=== PATIENT | male | born 1945 | race Caucasian/White ===

== ENCOUNTER 2017-11-26 10:39 | Inpatient (IN) | payer MEDICARE, OTHER ==
[2017-11-26] MEDS ORDERED: ISOVUE-370 76%-LOCM 1 ML ONE (10:50)
[2017-11-26 11:43] LABS: #Eosinphils 0.6 thou/uL (0.0-0.7); #Lymphocytes 1.1 thou/uL (1.20-3.40); #Monocytes 1.3 thou/uL (0.11-0.59); #Neutrophils 8.4 thou/uL (1.40-6.50); %Basophils 0.2 % (0.0-1.0); %Eosinophils 5.4 % (0.0-10.0); %Lymphocytes 9.6 % (21.0-51.0); %Monocytes 11.5 % (0.0-10.0); %Neutrophils 73.3 % (42.0-75.0); Hemoglobin 13.9 g/dL (14.0-18.0); Mean Corpuscular HGB CONC 33.4 g/dL (32.0-36.0); Mean Corpuscular Hemoglobin 34.3 pg (27.0-31.0); Mean Platelet Volume 7.2 fL (7.4-10.4); Platelet Count 332 thou/uL (130-400); Red Blood Cell (RBC) Count 4.06 mill/uL (4.70-6.10); White Blood Cell (WBC) Count 11.4 thou/uL (4.8-10.8)
[2017-11-26 13:18] LABS: Albumin 3.3 g/dL (3.4-4.8)
[2017-11-26 13:20] LABS: Calcium 9.2 mg/dL (7.8-10.44); Chloride 93 mmol/L (98-107); Potassium 4.2 mmol/L (3.5-5.1); Sodium 131 mmol/L (136-145)
[2017-11-26 13:21] LABS: Globulin 3.5 g/dL (2.4-3.5); Glucose 115 mg/dL (80-115); Protein, Total 6.8 g/dL (5.8-8.1)
[2017-11-26 13:22] LABS: Anion Gap 12 mmol/L (10-20); Carbon Dioxide 30 mmol/L (23-31)
[2017-11-26 13:23] LABS: Bilirubin, Total 0.9 mg/dL (0.2-1.2)
[2017-11-26 13:24] LABS: Alkaline Phosphatase 284 U/L (40-150); Calc. Creatinine Clearance 0 mL/min (70-130); Estimated GFR-MDRD 78
[2017-11-26 13:25] LABS: BUN (Urea Nitrogen) 12 mg/dL (8.4-25.7)
[2017-11-26 13:26] LABS: AST (SGOT) 44 U/L (5-34)
[2017-11-26 13:27] LABS: ALT (SGPT) 59 U/L (8-55)
--- NOTE | 2017-11-26 15:33 | ULT ---
LEFT LOWER EXTREMITY VENOUS DOPPLER ULTRASOUND: 11/26/2017 HISTORY: Pain. Swelling. Edema. Assess for DVT. COMPARISON: None. TECHNIQUE: Multiplanar cabrera-scale sonographic imaging of the venous structures of the left lower extremity obtai marina with color-flow and spectral analysis. FINDINGS: The left common femoral vein is expanded with heterogeneously hypoechoic clot. Similar findings are seen within the left profunda femoral vein, femoral vein, popliteal vein, and posterior tibial vein. The color Doppler imaging demonstrates occlusive DVT throughout all veins of the left lower extremit y, as well as occlusive clot in the calf. IMPRESSION: Extensive occlusive deep venous thrombosis throughout the left lower extremity, as detailed above. Kyler rothman called to Dr. Villegas at 1:50 p.m. on 11/26/2017. CODE CR POS: BHAVIK
[2017-11-26] MEDS ORDERED: Enoxaparin Sodium 80 MG/0.8 ML SYRINGE ONE (16:29)
[2017-11-26] MEDS ORDERED: Enoxaparin Sodium 60 MG/0.6 ML SYRINGE ONE (16:29)
[2017-11-26] MEDS ORDERED: Enoxaparin Sodium 40 MG/0.4 ML SYRINGE ONE (16:30)
[2017-11-26] MEDS ORDERED: Enoxaparin Sodium 100 MG/ML SYRINGE ONE (16:32)
[2017-11-26] MEDS ORDERED: Ondansetron HCl/PF 4 MG/2 ML Vial IVP PRN ×2 (17:36→20:42)
[2017-11-26] MEDS ORDERED: Acetaminophen 325 MG TAB PO PRN (17:36)
[2017-11-26] MEDS ORDERED: Ondansetron ODT 4 MG TAB SL PRN (17:36)
[2017-11-26 17:50] VITALS: BMI 29.2
[2017-11-26] MEDS ORDERED: Ondansetron ODT 4 MG TAB PO PRN (20:42)
[2017-11-26] MEDS ORDERED: Acetaminophen 500 MG TAB PO PRN (20:42)
[2017-11-26] MEDS ORDERED: hydrALAZINE 20 MG/ML VIAL SLOW IVP PRN (20:42)
[2017-11-26] MEDS ORDERED: cloNIDine 0.1 MG TAB PO PRN (20:42)
[2017-11-26] MEDS ORDERED: Temazepam 15 MG CAP PO PRN (21:05)
[2017-11-26] MEDS: Famotidine 20 MG TAB PO SCH (21:10)
[2017-11-26] MEDS: Enoxaparin Sodium 120 MG/0.8 ML SYRINGE SC SCH (21:10)
[2017-11-26] MEDS: traMADol HCl 50 MG TAB PO PRN (21:15)
--- NOTE | 2017-11-26 22:09 | PDOC.EVN ---
Event Note - Event Note Event Note: Called by Radiologist, Patient's CTA was positive for fairly large PE. Patient is on Lovenox full dose, and Vital signs were reviewed, and are normal.
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
--- NOTE | 2017-11-26 22:24 | CT ---
CTA CHEST WITH 3D VOLUME RENDERIN11/26/17 INDICATION: History of DVT. FINDINGS: There is a large filling defect involving segmental branches of the right pulmonary arterial system, most notable at the level of right lower lobe pulmonary arterial branches. A very small filling defec t involves left upper lobe segmental pulmonary arterial branch as well as a subsegmental left lower l obe pulmonary arterial branch. There is patchy subpleural opacification of the right lower lobe for w hich the possibility of pulmonary infarction is not excluded in light of the burden of acute pulmonar y embolus. No pneumothorax or pleural effusion. IMPRESSION: Extensive acute pulmonary thromboembolism with subpleural patchy opacification of the right lower lob e for which developing pulmonary infarction is not excluded. Telephone call to ordering physician, Darwin Ibrahim, placed at 2159 hours, 11/26/17. Code CR POS: BHAVIK
[2017-11-27] MEDS: traMADol HCl 50 MG TAB PO PRN ×4 (05:05→23:29)
[2017-11-27 06:37] LABS: ALT (SGPT) 46 U/L (8-55); AST (SGOT) 35 U/L (5-34); Albumin 3.1 g/dL (3.4-4.8); Alkaline Phosphatase 261 U/L (40-150); Anion Gap 12 mmol/L (10-20); BUN (Urea Nitrogen) 12 mg/dL (8.4-25.7); Calc. Creatinine Clearance 133 mL/min (70-130); Carbon Dioxide 30 mmol/L (23-31); Chloride 93 mmol/L (98-107); Estimated GFR-MDRD Greater than 90; Globulin 3.4 g/dL (2.4-3.5); Glucose 99 mg/dL (80-115); Potassium 3.8 mmol/L (3.5-5.1); Protein, Total 6.5 g/dL (5.8-8.1); Sodium 131 mmol/L (136-145)
[2017-11-27 06:44] LABS: Hemoglobin 13.2 g/dL (14.0-18.0); Mean Corpuscular HGB CONC 33.3 g/dL (32.0-36.0); Mean Platelet Volume 6.8 fL (7.4-10.4); Platelet Count 403 thou/uL (130-400); RBC Distribution Width 12.2 % (11.5-14.5); Red Blood Cell (RBC) Count 3.87 mill/uL (4.70-6.10); White Blood Cell (WBC) Count 10.3 thou/uL (4.8-10.8)
[2017-11-27 06:51] LABS: Band 2 % (5-11); Hypochromia SLIGHT = 6-15 cells (100X) (0-5/hpf); Lymphocytes 8 % (21-51); MDiff Complete? YES; Monocytes 6 % (0-10); Neutrophil 84 % (42-75); PLT Morphology Comment Appears Increased
[2017-11-27] MEDS: Enoxaparin Sodium 120 MG/0.8 ML SYRINGE SC SCH ×2 (08:03→21:21)
[2017-11-27] MEDS: Famotidine 20 MG TAB PO SCH ×2 (08:03→21:21)
[2017-11-27] MEDS ORDERED: Aspirin 325 MG TAB PO SCH (09:00)
[2017-11-27] MEDS: HYDROcodone/Acetaminophen 5/325 mg Tablet PO PRN ×2 (12:15→19:19)
--- NOTE | 2017-11-27 16:29 | PDOC.PN ---
- Subjective Encounter Start Date: 11/27/17 Encounter Start Time: 16:15 Subjective: f/u for acute LLE DVT and CTA chest showing extensive PE on Lovenox -: currently. Overall feels better and no CP. Mild SOB but no hypoxia. - Objective Resuscitation Status: Resuscitation Status FULL:Full Resuscitation MAR Reviewed: Yes Vital Signs & Weight: Vital Signs (12 hours) Temp Pulse Resp BP Pulse Ox 11/27/17 16:00 98.4 F 94 20 130/73 94 L 11/27/17 11:53 100.0 F H 93 20 132/78 93 L 11/27/17 08:00 98.5 F 90 20 11/27/17 07:46 98.5 F 90 20 127/75 93 L Weight Weight 233 lb I&O: 11/26/17 11/27/17 11/28/17 06:59 06:59 06:59 Intake Total 1110 Output Total 1100 Balance 10 Result Diagrams: 11/27/17 06:05 11/27/17 06:05 Additional Labs: Laboratory Tests 11/26/17 11/26/17 11/27/17 11:23 13:00 06:05 WBC 11.4 H Hgb 13.9 L Sodium 131 L AST 44 H 35 H ALT 59 H 46 Alkaline Phosphatase 284 H 261 H Radiology Reviewed by me: Yes (CTA chest - multiple PE's) EKG Reviewed by me: Yes (Tele -SR in 90's) Phys Exam - Physical Examination Constitutional: NAD HEENT: PERRLA, sclera anicteric, oral pharynx no lesions Neck: no nodes, no JVD, supple, full ROM diminished in bases bilat Respiratory: no rales, no rhonchi S1, S2 Cardiovascular: RRR, no significant murmur, no rub, gallop Gastrointestinal: soft, non-tender, no distention, positive bowel sounds LLE with extensive edema from groin to foot Musculoskeletal: pulses present Neurological: non-focal, normal sensation, moves all 4 limbs Psychiatric: normal affect, A&O x 3 Skin: normal turgor, cap refill <2 seconds Dx/Plan (1) Acute deep vein thrombosis (DVT) of left lower extremity Code(s): I82.402 - ACUTE EMBOLISM AND THOMBOS UNSP DEEP VEINS OF L LOW EXTREM Status: Acute Comment: Extensive involvement of entire extremity, continue Lovenox, consider OAC option in next 48h (2) Acute pulmonary embolism Code(s): I26.99 - OTHER PULMONARY EMBOLISM WITHOUT ACUTE COR PULMONALE Status : Acute Comment: bilat involvement, continue Lovenox, see #1 above (3) Hyponatremia Code(s): E87.1 - HYPO-OSMOLALITY AND HYPONATREMIA Status: Acute Comment: Likely subacute, supportive mgmt (4) Transaminitis Code(s): R74.0 - NONSPEC ELEV OF LEVELS OF TRANSAMNS & LACTIC ACID DEHYDRGNSE Status: Acute Comment: Secondary to #1, serial monitoring (5) Macrocytic anemia Code(s): D53.9 - NUTRITIONAL ANEMIA, UNSPECIFIED Status: Chronic Comment: Check stool guaiac, serial H/H - 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
[2017-11-27] MEDS: Docusate 100 MG CAP PO SCH (21:21)
[2017-11-28] MEDS: HYDROcodone/Acetaminophen 5/325 mg Tablet PO PRN ×4 (02:32→20:19)
[2017-11-28] MEDS: traMADol HCl 50 MG TAB PO PRN ×4 (05:19→23:37)
[2017-11-28 06:24] LABS: ALT (SGPT) 41 U/L (8-55); AST (SGOT) 38 U/L (5-34); Albumin 3.1 g/dL (3.4-4.8); Alkaline Phosphatase 274 U/L (40-150); Anion Gap 13 mmol/L (10-20); BUN (Urea Nitrogen) 14 mg/dL (8.4-25.7); Bilirubin, Total 1.1 mg/dL (0.2-1.2); Calc. Creatinine Clearance 137 mL/min (70-130); Calcium 9.4 mg/dL (7.8-10.44); Carbon Dioxide 28 mmol/L (23-31); Chloride 92 mmol/L (98-107); Estimated GFR-MDRD Greater than 90; Globulin 3.6 g/dL (2.4-3.5); Glucose 92 mg/dL (80-115); Potassium 4.3 mmol/L (3.5-5.1); Protein, Total 6.7 g/dL (5.8-8.1); Sodium 129 mmol/L (136-145)
[2017-11-28] MEDS: Docusate 100 MG CAP PO SCH ×2 (08:13→20:20)
[2017-11-28] MEDS: Senokot 8.6 MG TAB PO SCH (08:13)
[2017-11-28] MEDS: Enoxaparin Sodium 120 MG/0.8 ML SYRINGE SC SCH ×2 (08:13→20:20)
[2017-11-28] MEDS: Famotidine 20 MG TAB PO SCH ×2 (08:13→20:20)
--- NOTE | 2017-11-28 17:45 | PDOC.PN ---
- Subjective Encounter Start Date: 11/28/17 Encounter Start Time: 17:40 Subjective: f/u for DVT LLE with extensive PE's on Lovenox. - Objective Resuscitation Status: Resuscitation Status FULL:Full Resuscitation MAR Reviewed: Yes Vital Signs & Weight: Vital Signs (12 hours) Temp Pulse Resp BP Pulse Ox 11/28/17 16:26 98 F 95 18 134/72 93 L 11/28/17 11:59 98.5 F 92 18 144/87 H 92 L 11/28/17 07:40 99.2 F 97 19 11/28/17 07:37 99.1 F 94 18 118/68 91 L Weight Weight 230 lb 9.6 oz I&O: 11/27/17 11/28/17 11/29/17 06:59 06:59 06:59 Intake Total 1110 1770 Output Total 1100 755 Balance 10 1015 Result Diagrams: 11/27/17 06:05 11/28/17 05:24 Additional Labs: Laboratory Tests 11/26/17 11/26/17 11/27/17 11:23 13:00 06:05 WBC 11.4 H Hgb 13.9 L Sodium 131 L AST 44 H 35 H ALT 59 H 46 Alkaline Phosphatase 284 H 261 H Radiology Reviewed by me: Yes (2D echo - EF 45%, mild diast dysfxn) EKG Reviewed by me: Yes (Tele - SR) Phys Exam - Physical Examination Constitutional: NAD HEENT: PERRLA, sclera anicteric, oral pharynx no lesions Neck: no nodes, no JVD, supple, full ROM Respiratory: no wheezing, no rales, no rhonchi, clear to auscultation bilateral S1, S2 Cardiovascular: RRR, no significant murmur, no rub, gallop Gastrointestinal: soft, non-tender, no distention, positive bowel sounds LLE edema from groin to foot Musculoskeletal: pulses present, edema present Neurological: normal sensation, moves all 4 limbs Psychiatric: normal affect, A&O x 3 Skin: no rash, normal turgor, cap refill <2 seconds Dx/Plan (1) Acute deep vein thrombosis (DVT) of left lower extremity Code(s): I82.402 - ACUTE EMBOLISM AND THOMBOS UNSP DEEP VEINS OF L LOW EXTREM Status: Acute Comment: Extensive involvement of entire extremity, continue Lovenox, consider OAC option in next 48h, likely Xarelto (2) Acute pulmonary embolism Code(s): I26.99 - OTHER PULMONARY EMBOLISM WITHOUT ACUTE COR PULMONALE Status : Acute Comment: bilat involvement, continue Lovenox, see #1 above (3) Hyponatremia Code(s): E87.1 - HYPO-OSMOLALITY AND HYPONATREMIA Status: Acute Comment: Likely subacute, supportive mgmt, suspect chronic condition (4) Transaminitis Code(s): R74.0 - NONSPEC ELEV OF LEVELS OF TRANSAMNS & LACTIC ACID DEHYDRGNSE Status: Acute Comment: Secondary to #1, serial monitoring (5) Macrocytic anemia Code(s): D53.9 - NUTRITIONAL ANEMIA, UNSPECIFIED Status: Chronic Comment: Check stool guaiac, serial H/H - Plan plan discussed w/ family, out of bed/ambulate Stable overall -: Continue Lovenox 110mg sc q12h -: Pain control with Tramadol and [place] -: Likely transition to Xarelto in 24h -: Stool guaiac pending * .
[2017-11-29] MEDS: HYDROcodone/Acetaminophen 5/325 mg Tablet PO PRN ×4 (02:29→20:52)
[2017-11-29] MEDS: traMADol HCl 50 MG TAB PO PRN ×3 (05:37→17:52)
[2017-11-29] MEDS: Senokot 8.6 MG TAB PO SCH (08:56)
[2017-11-29] MEDS: Famotidine 20 MG TAB PO SCH ×2 (08:56→20:58)
[2017-11-29] MEDS: Docusate 100 MG CAP PO SCH ×2 (08:56→20:58)
[2017-11-29] MEDS: Enoxaparin Sodium 120 MG/0.8 ML SYRINGE SC SCH (08:56)
--- NOTE | 2017-11-29 16:41 | PDOC.PN ---
- Subjective Encounter Start Date: 11/29/17 Encounter Start Time: 16:35 Subjective: f/u for LLE DVT and extensive PE's on Lovenox. Feels ok overall with -: persistent LLE edema. No SOB or CP. - Objective Resuscitation Status: Resuscitation Status FULL:Full Resuscitation MAR Reviewed: Yes Vital Signs & Weight: Vital Signs (12 hours) Temp Pulse Resp BP Pulse Ox 11/29/17 15:17 98.7 F 77 20 120/72 93 L 11/29/17 11:14 98.4 F 91 20 129/85 92 L 11/29/17 08:00 99.3 F 106 H 28 H 132/84 90 L Weight Weight 228 lb 14.4 oz I&O: 11/28/17 11/29/17 11/30/17 06:59 06:59 06:59 Intake Total 1770 1220 720 Output Total 755 605 Balance 1015 615 720 Result Diagrams: 11/27/17 06:05 11/28/17 05:24 Additional Labs: Laboratory Tests 11/26/17 11/26/17 11/27/17 11:23 13:00 06:05 WBC 11.4 H Hgb 13.9 L Sodium 131 L AST 44 H 35 H ALT 59 H 46 Alkaline Phosphatase 284 H 261 H EKG Reviewed by me: Yes (Tele - SR) Phys Exam - Physical Examination Constitutional: NAD HEENT: PERRLA, sclera anicteric, oral pharynx no lesions Neck: no nodes, no JVD, supple, full ROM Respiratory: no wheezing, no rales, no rhonchi, clear to auscultation bilateral S1, S2 Cardiovascular: RRR, no significant murmur, no rub, gallop Gastrointestinal: soft, non-tender, no distention, positive bowel sounds LLE edema from foot to groin Musculoskeletal: pulses present, edema present Neurological: normal sensation, moves all 4 limbs Psychiatric: normal affect, A&O x 3 Skin: normal turgor, cap refill <2 seconds Dx/Plan (1) Acute deep vein thrombosis (DVT) of left lower extremity Code(s): I82.402 - ACUTE EMBOLISM AND THOMBOS UNSP DEEP VEINS OF L LOW EXTREM Status: Acute Comment: Extensive involvement of entire extremity, start Xarelto 15mg BID today, d/c Lovenox (2) Acute pulmonary embolism Code(s): I26.99 - OTHER PULMONARY EMBOLISM WITHOUT ACUTE COR PULMONALE Status : Acute Comment: bilat involvement, start Xarelto, see #1 above (3) Hyponatremia Code(s): E87.1 - HYPO-OSMOLALITY AND HYPONATREMIA Status: Acute Comment: Likely subacute, supportive mgmt, suspect chronic condition (4) Transaminitis Code(s): R74.0 - NONSPEC ELEV OF LEVELS OF TRANSAMNS & LACTIC ACID DEHYDRGNSE Status: Acute Comment: Secondary to #1, serial monitoring (5) Macrocytic anemia Code(s): D53.9 - NUTRITIONAL ANEMIA, UNSPECIFIED Status: Chronic Comment: Check stool guaiac, serial H/H (6) Constipation Code(s): K59.00 - CONSTIPATION, UNSPECIFIED Status: Acute Qualifiers: Constipation type: slow transit constipation Qualified Code(s): K59.01 - Slow transit constipation Comment: Mag citrate today, continue Colace/Senna - 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
[2017-11-29] MEDS ORDERED: Magnesium Citrate 300 ML BOT PO SCH (17:00)
[2017-11-29] MEDS ORDERED: Rivaroxaban 15 MG TAB PO SCH (20:00)
[2017-11-29] MEDS ORDERED: Enoxaparin Sodium 100 MG/ML SYRINGE SC SCH (21:00)
[2017-11-30] MEDS: traMADol HCl 50 MG TAB PO PRN ×3 (00:41→14:47)
[2017-11-30] MEDS: HYDROcodone/Acetaminophen 5/325 mg Tablet PO PRN ×3 (04:04→18:42)
[2017-11-30 05:52] LABS: Hemoglobin 13.3 g/dL (14.0-18.0); Platelet Count 547 thou/uL (130-400)
[2017-11-30 05:56] LABS: Calc. Creatinine Clearance 146 mL/min (70-130); Estimated GFR-MDRD Greater than 90
[2017-11-30 07:52] VITALS: TEMP 98.7
[2017-11-30] MEDS: Famotidine 20 MG TAB PO SCH (08:33)
[2017-11-30] MEDS: Senokot 8.6 MG TAB PO SCH (08:34)
[2017-11-30] MEDS: Docusate 100 MG CAP PO SCH (08:34)
[2017-11-30] MEDS ORDERED: Rivaroxaban 15 MG TAB PO SCH (09:00)
--- NOTE | 2017-11-30 11:44 | DIS ---
DATE OF ADMISSION: 11/26/2017 DATE OF DISCHARGE: 11/30/2017 DISCHARGE DIAGNOSES: 1. Acute left lower extremity deep venous thrombosis. 2. Acute pulmonary embolus. 3. Hyponatremia, chronic. 4. Transaminitis, chronic. 5. Macrocytic anemia, stable. 6. Constipation, resolved. CONSULTATIONS: None. PERTINENT LAB AND X-RAY FINDINGS: Sodium ranged between 129-131, AST ranged between 35-44, ALT range d between 41-59, total bilirubin ranged between 0.9-1.1. BNP 18. CBC showed a hemoglobin 13, hemato crit 39, MCV 102. Stool Hemoccult negative x2. CT angiogram of the chest dated 11/26/2017 showed ex tensive acute pulmonary thromboembolism of the right lower lobe. Small filling defect and defects in volving the left upper lobe segmental pulmonary arterial branches and left lower lobe. Left lower ex tremity venous Doppler study dated 11/26/2017 showed extensive occlusive deep venous thrombosis of th e entire left lower extremity. A 2D transthoracic echocardiogram dated 11/28/2017 showed ejection fr action of 40%-45%. Diastolic dysfunction. HOSPITAL COURSE: The patient was admitted to the telemetry unit after initially presenting with wors ening left lower extremity swelling, redness and pain. The patient underwent evaluation with venous Doppler studies showing extensive deep venous thrombosis of the left lower extremity. The patient un derwent CT angiogram of the chest showing extensive pulmonary emboli, right greater than left. The p atient was placed on subcutaneous Lovenox at 1 mg/kg subcutaneously q.12 hours. The patient continue d on subcutaneous Lovenox for approximately 4 days overall stabilizing with this regimen. The patien t did not require oxygen supplementation and overall showed mild improvement in lower extremity edema . The patient was noted with mild metabolic derangements including chronic hyponatremia and transami nitis overall stable during the hospital course. The patient had stool guaiacs which were negative x 2. Telemetry monitoring showed a sinus mechanism without evidence of acute arrhythmia or dysrhythmia . The patient transitioned to Xarelto 15 mg b.i.d., at which point the Lovenox was discontinued. Du e to insurance coverage, the patient will use Xarelto as a bridging mechanism until Coumadin becomes therapeutic with a goal INR of 2-3. I have examined the patient at the time of discharge and discus sed followup instructions. The patient verbalize understanding and agreement and ready for discharge on 11/30/2017. DISCHARGE MEDICATIONS: 1. Xarelto 15 mg p.o. b.i.d. x3 week, followed by 20 mg p.o. daily. 2. Coumadin 5 mg p.o. daily with a goal INR of 2-3. 3. Pepcid 20 mg p.o. daily. 4. Tramadol 50 mg p.o. every 6 hours p.r.n. pain. FOLLOWUP: The patient to follow up with [facility] within 3-4 days of discharge. CONDITION ON DISCHARGE: Fair. ACTIVITY: ad cathie. Elevate left lower extremity while seated or resting. SPECIAL INSTRUCTIONS: PT/INR evaluation on 12/03/2017 with a goal INR of 2-3. May discontinue Xarel to once a goal INR of 2-3 is obtained using Coumadin therapy. DIET: Coumadin prudent and heart healthy. CODE STATUS: FULL. DISPOSITION: Home on 11/30/2017. Total time preparing in coordinating discharge is 40 minutes.
[2017-11-30 18:46] VITALS: BP 132/70
== END 2017-11-30 18:58 | disposition home or self-care (01) | DRG 299 ==
LOC: ERS 10:39 → 2SE 17:18
PROVIDERS: ADMIT Family Medicine; ATTEND Family Medicine
DX: I82.402 Acute embolism and thrombosis of unspecified deep veins of left lower extremity (principal); I26.99 Other pulmonary embolism without acute cor pulmonale; E87.1 Hypo-osmolality and hyponatremia; R74.0 Nonspecific elevation of levels of transaminase and lactic acid dehydrogenase [LDH]; D53.9 Nutritional anemia, unspecified; K59.01 Slow transit constipation; Z91.81 History of falling; Z87.891 Personal history of nicotine dependence; Z89.022 Acquired absence of left finger(s)
CPT/HCPCS: 36415; 71275; 80053; 82274; 82565; 83880; 85007; 85014; 85018; 85025; 85027; 85049; 93005; 93306; 96372; 96374; A4216; J1650; J2270; J2405